=== PATIENT | male | born 1985 | race Hispanic/Latino ===

== ENCOUNTER 2019-02-01 20:36 | Emergency (ER) | payer SELFPAY ==
[2019-02-01 21:35] LABS: Anion Gap 16 mmol/L (10-20); BUN (Urea Nitrogen) 14 mg/dL (8.9-20.6); Calc. Creatinine Clearance 0 mL/min (70-130); Calcium 9.6 mg/dL (7.8-10.44); Carbon Dioxide 26 mmol/L (22-29); Chloride 102 mmol/L (98-107); Estimated GFR-MDRD Greater than 90; Glucose 126 mg/dL (70-105); Potassium 3.6 mmol/L (3.5-5.1); Sodium 140 mmol/L (136-145); Uric Acid 9.3 mg/dL (3.5-7.2)
[2019-02-01] MEDS ORDERED: Colchicine 0.6 MG TAB ONE (21:46)
== END 2019-02-01 21:55 | disposition home or self-care (01) ==
LOC: NAV ERS 20:36
DX: M10.9 Gout, unspecified (principal)
CPT/HCPCS: 80048; 84550; 99283

== ENCOUNTER 2019-12-07 10:48 | Emergency (ER) | payer OTHER, SELFPAY ==
[2019-12-07 11:34] LABS: #Basophils 0.1 thou/uL (0.0-0.2); #Lymphocytes 1.8 thou/uL (1.20-3.40); #Monocytes 0.7 thou/uL (0.11-0.59); #Neutrophils 10.2 thou/uL (1.40-6.50); %Basophils 0.7 % (0.0-1.0); %Eosinophils 0.2 % (0.0-10.0); %Monocytes 5.7 % (0.0-10.0); %Neutrophils 79.4 % (42.0-75.0); Mean Corpuscular HGB CONC 31.5 g/dL (32.0-36.0); Mean Corpuscular Hemoglobin 29.6 pg (27.0-31.0); Mean Platelet Volume 8.7 fL (7.4-10.4); Platelet Count 238 thou/uL (130-400); RBC Distribution Width 12.4 % (11.5-14.5); Red Blood Cell (RBC) Count 5.07 mill/uL (4.70-6.10); White Blood Cell (WBC) Count 12.8 thou/uL (4.8-10.8)
--- NOTE | 2019-12-07 11:44 | RAD ---
Chest one view HISTORY: Chest pain. FINDINGS: Cardiac silhouette is magnified by projection. Pulmonary vasculature is unremarkable. Mediastinum is midline. No lobar consolidation or evidence of pneumothorax. IMPRESSION : No abnormalities are demonstrated.
[2019-12-07 11:51] LABS: ALT (SGPT) 24 U/L (8-55); AST (SGOT) 15 U/L (5-34); Albumin 4.1 g/dL (3.5-5.0); Alkaline Phosphatase 48 U/L (40-110); Anion Gap 13 mmol/L (10-20); BUN (Urea Nitrogen) 12 mg/dL (8.9-20.6); Bilirubin, Total 0.5 mg/dL (0.2-1.2); CK (CPK) 63 U/L (30-200); Calc. Creatinine Clearance 0 mL/min (70-130); Calcium 8.8 mg/dL (7.8-10.44); Carbon Dioxide 25 mmol/L (22-29); Chloride 104 mmol/L (98-107); Estimated GFR-MDRD Greater than 90; Globulin 2.9 g/dL (2.4-3.5); Glucose 84 mg/dL (70-105); Lipase 21 U/L (8-78); Potassium 3.5 mmol/L (3.5-5.1); Sodium 138 mmol/L (136-145)
[2019-12-07 14:44] LABS: Troponin I Less than 0.010 ng/mL (< 0.028)
== END 2019-12-07 15:10 | disposition home or self-care (01) ==
LOC: NAV ERS 10:48
DX: R07.2 Precordial pain (principal); R51.9 Headache, unspecified; R00.1 Bradycardia, unspecified; R11.10 Vomiting, unspecified
CPT/HCPCS: 71045; 80053; 82550; 83690; 84484; 85025; 93005

== ENCOUNTER 2022-12-15 08:37 | Emergency (ER) | payer SELFPAY ==
[2022-12-15] MEDS ORDERED: Ibuprofen 800 MG TAB ONE (09:01)
== END 2022-12-15 09:48 | disposition home or self-care (01) ==
LOC: NAV ERS 08:37
DX: M70.41 Prepatellar bursitis, right knee (principal)

== ENCOUNTER 2023-08-07 23:17 | Emergency (ER) | payer SELFPAY ==
[2023-08-07] MEDS ORDERED: Ondansetron ODT 4 MG TAB ONE (23:49)
[2023-08-07] MEDS ORDERED: Naproxen 500 MG TAB ONE (23:49)
[2023-08-08] MEDS ORDERED: predniSONE 20 MG TAB ONE (00:15)
== END 2023-08-08 00:23 | disposition home or self-care (01) ==
LOC: NAV ERS 23:17
DX: T63.2X1A Toxic effect of venom of scorpion, accidental (unintentional), initial encounter (principal)
CPT/HCPCS: 99282; J7512; Q0162